=== PATIENT | female | born 1960 | race Caucasian/White ===

== ENCOUNTER 2017-02-17 18:47 | Emergency (ER) | payer MEDICAID ==
[~2017-02-17] VITALS: Ht 154.9 cm; Wt 56.2 kg
[~2017-02-17 18:47] MED LIST: TETRACAINE HCL 0.5% OPHTHALMIC DROPS 15 ML OP ONE
[2017-02-17 18:52] VITALS: BP 126/75; PULSE 71; TEMP 96.9; O2SAT 96
[2017-02-17 21:05] VITALS: BP 126/75; PULSE 71; TEMP 96.9; O2SAT 96
== END 2017-02-17 21:05 | disposition home or self-care (01) ==
LOC: SED 18:47
DX: H10.9 Unspecified conjunctivitis (principal); Z88.0 Allergy status to penicillin
CPT/HCPCS: 99283; J7030